=== PATIENT | female | born 1960 | race Caucasian/White ===

== ENCOUNTER 2022-04-20 11:16 | Inpatient (IN) | payer MEDICARE, MEDICAID, SELFPAY ==
--- NOTE | ~2022-04-20 | CT_ITS ---
EXAMINATION: CT HEAD WITHOUT CONTRAST CLINICAL INFORMATION: Confusion COMPARISON: None TECHNIQUE: Contiguous axial imaging was performed from the skull base to vertex without intravenous administration of contrast. This CT examination was performed using dose optimization techniques as appropriate, variously including the following: *Automated exposure control *Adjustment of mA and/or kV according to patient size (this includes techniques or standardized protocols for targeted exams where dose is matched to indication/reason for exam; i.e. extremities or head) *Use of iterative reconstruction technique DLP: 638 mGy-cm FINDINGS: There is no acute intra-axial, extra-axial bleed, masses or midline shift. There is no acute infarction evolution. The lateral ventricles are symmetrical in size and configuration without enlargement. The reeves to white matter difference is maintained normal. There is no acute infarction evolution. There is no edema. The soft tissues are normal. Bone windows reveal no calvarial abnormality. There is no scalp soft tissue abnormality. There is mild mucoperiosteal thickening right sphenoid and bilateral maxillary sinuses. CT/CT head/brain wo IV con IMPRESSION: No acute intracranial process seen. Chronic right sphenoid and bilaterally maxillary sinus inflammatory changes.
--- NOTE | ~2022-04-20 | XR_ITS ---
EXAMINATION: XR CHEST CLINICAL INFORMATION: Weakness COMPARISON: None TECHNIQUE: Frontal view of the chest was obtained. FINDINGS: Lungs are well-inflated. There appears to be minimal linear opacity of atelectasis of the inferior lingula. No airspace disease, mass or pleural effusion. Cardiac silhouette has normal size and contour. Surgical clips of the right axillary region. Bones appear to be diffusely osteopenic and there is osteoarthritis of bilateral glenohumeral joints. XR/XR chest 1V IMPRESSION: No acute pulmonary disease.
--- NOTE | 2022-04-20 11:19 | ECG_ITS ---
Test Reason : weakness Blood Pressure : / mmHG Vent. Rate : 103 BPM Atrial Rate : 103 BPM P-R Int : 140 ms QRS Dur : 070 ms QT Int : 372 ms P-R-T Axes : 064 040 048 degrees QTc Int : 487 ms Sinus tachycardia Otherwise normal ECG No previous ECGs available Referred By: Brigette Winter Electronically Signed By:Armando Barajas
--- NOTE | 2022-04-20 11:19 | ED.AMS ---
HPI - Altered Mental Status General Chief Complaint: Altered Mental Status Stated Complaint: NON MED COMPLIANT, AMS SINCE T-1 PER FAMILY Time Seen by Provider: 04/20/22 11:17 Source: patient, family and EMS Mode of arrival: EMS Limitations: altered mental status History of Present Illness HPI narrative: 61-year-old female with a reported history of anxiety and depression presents the ER from home for evaluation of confusion, altered mental status, not taking her medications for the last 1 week. EMS reports that the patient lives with her daughter and son-in-law. They called 911 because she has not been eating or drinking much, not taking her anxiety and depression medications, not sleeping for the last for 5 days. Patient on arrival to the ER is oriented to self only she is confused and cannot answer simple questions. Patient is son-in-law arrived to the ER to to help provide history. He reports at baseline she is an active, alert oriented woman. She is a former nurse's aide, retired in 2014. She got COVID on April 10. He reports a slow decline in her health since then. He reports this last week she had a fall at home on Friday or Friday. She has had significant decline in her confusion and weakness since then. She is not sleeping at all, not eating. He denies any use of drugs or alcohol. MD complaint: altered mental status, confusion and weakness Onset (ago): day(s) (5) Timing confirmed by: family member Severity: severe Consistency of symptoms: getting Worse Associated symptoms: loss of appetite, malaise and weakness Related Data Allergies Allergy/AdvReac Type Severity Reaction Status Date / Time No Known Allergies Allergy Unverified 12/23/19 16:34 [No Known Allergies*] Review of Systems Review of Systems: Yes Unobtainable due to mental condition and Unobtainable due to mental status PMFSH Social History Social History Alcohol intake: unknown Advance Directives: No Physical Exam ED Vital Signs: Vital Signs - 24 hr 04/20/22 11:24 04/20/22 12:40 Temperature 99.6 F Pulse Rate 115 H 102 H Respiratory Rate 18 18 Blood Pressure 118/88 120/79 Pulse Oximetry 96 96 Oxygen Delivery Method Room Air Room Air BMI result Body Mass Index 26.6 Appearance: Alert. Oriented X1. No acute distress. Eyes: Pupils equal, round and reactive to light. ENT: Pharynx normal. Neck: Normal inspection. Neck supple. CVS: Normal heart rate and rhythm. Pulses normal. Respiratory: No respiratory distress. Breath sounds normal. Abdomen: Soft and nontender. +BS x4 Skin: Skin warm and dry. Normal skin color. Normal skin turgor. No rashes. Extremities: No lower extremity edema. Neuro: Oriented X 1. No motor deficit. No sensory deficit. Confused, not able to hold a conversation or answer questions appropriately. Can follow simple commands. Delayed responses. Course Course Course Narrative: 61-year-old female with history of anxiety and depression, recent diagnosis of COVID-19 on April 10 through presents to the ER for evaluation of altered mental status, decreased p.o. intake for the last several days, not sleeping She had a fall at home earlier this week, no sustained injuries per family. Decline in mentation and increased confusion since then. On arrival to the ER patient has low-grade fever 99.6. She is tachycardic to 115 with a normal blood pressure. Saturating well on room air. Physical exam is unremarkable, aside from marked confusion. She has no nuchal rigidity or evidence of photophobia. Doubt acute meningitis. Could be related to COVID encephalopathy, lack of sleep, other metabolic derangement. Will get CT of her head, metabolic workup. Anticipate admission Reevaluation(s) Reevaluation #1: remains very confused. labs with JACKSON, Utox + opiates. SOFTWARE ENGINEER reviewed she is on Morphine ER and klonopin. no benzos in her utox, ?withdrawal. will plan to admit for further workup and management. Medications Administered Discontinued Medications Generic Name Dose Route Start Last Admin Trade Name Julienq PRN Reason Stop Dose Admin Sodium Chloride 1,000 mls @ 999 mls/hr 04/20/22 12:15 04/20/22 13:51 Ns IVCONT 04/20/22 13:15 Infused .Q1H1M YVETTE Infusion Potassium Chloride 40 meq 04/20/22 12:51 04/20/22 12:59 Potassium Chloride Er 20 Meq Tab.Er.Prt PO 04/20/22 12:52 40 meq ONCE ONE Administration Medical Decision Making Medical Decision Making MDM Narrative: 61-year-old female presenting to the ER for evaluation of confusion, weakness, not sleeping or eating. Differential diagnosis is broad. Will get metabolic workup, CT head, U tox. Tachycardic on arrival, incontinent of loose stools. Differential Diagnosis Differential Diagnoses: The differential diagnosis associated with the presentation includes Dehydration, polypharmacy, withdrawal, acute metabolic encephalopathy, stroke, toxicity, sleep deprivation, failure to thrive, COVID encephalopathy, new less likely meningitis Admission/Observation Consideration of admission/observation: Escalation of care including admission/observation considered Will require admission Consult Healthcare Provider Management of the patient was discussed with: Hospitalist Lab Data MDM Lab Attestation statement: I reviewed the patient's lab results. JACKSON and dehydration, hypokalemia 04/20/22 11:42 04/20/22 12:27 Labs: Lab Results 04/20/22 04/20/22 04/20/22 Range/Units 11:42 11:42 11:42 WBC 7.5 (4.8-10.8) X10*3/uL RBC 3.81 L (4.20-5.50) X10*6/uL Hgb 12.9 (12.0-16.0) g/dl Hct 35.8 L (37.0-47.0) % MCV 94.0 (80.0-98.0) fL MCH 33.9 H (27.0-33.0) pg MCHC 36.0 H (31.0-35.0) g/dl RDW 13.3 (11.0-16.0) % Plt Count 373 (160-400) X10*3/uL MPV 9.7 (9.4-12.3) fL Immature Gran % (Auto) 0.3 (0.0-0.4) % Neut % (Auto) 82.3 H (45-73) % Lymph % (Auto) 7.7 L (20-40) % [place] % (Auto) 9.3 (2-11) % Eos % (Auto) 0.1 (0-4) % Baso % (Auto) 0.3 (0-2) % Lymph # (Auto) 0.6 L (1.2-4.9) X10*3/uL [place] # (Auto) 0.7 (0.1-1.2) X10*3/uL Eos # (Auto) 0.0 (0.0-0.4) X10*3/uL Baso # (Auto) 0.0 (0.0-0.2) X10*3/uL Abs Immat Gran (auto) 0.02 (0.00-0.03) X10*3/uL Absolute Neuts (auto) 6.2 (2.0-8.3) x10*3/uL Absolute Nucleated RBC 0.000 (0.0-0.012) X10*3/uL Nucleated RBC % (auto) 0.0 (0.0-0.2) /100WBC VBG pH (7.32-7.43) VBG pCO2 mmHg VBG pO2 mmHg VBG HCO3 (22-26) mmol/L VBG O2 Saturation % VBG Base Excess mmol/L Sodium (135-145) mmol/L Potassium (3.3-5.1) mmol/L Chloride (96-108) mmol/L Carbon Dioxide (22-29) mmol/L Anion Gap (12-20) BUN (9-16) mg/dL Creatinine (0.5-1.4) mg/dL Estim Creat Clear Calc Estimated GFR Random Glucose (60-115) mg/dL Lactic Acid 1.1 (0.5-2.0) mmol/L Calcium (8.4-10.2) mg/dL Magnesium (1.6-2.6) mg/dL Total Bilirubin (0.0-1.0) mg/dL Direct Bilirubin (0.0-0.5) mg/dL AST (5-31) U/L ALT (0-31) U/L Alkaline Phosphatase (39-117) U/L Ammonia (13-55) umol/L Total Creatine Kinase (26-140) U/L Troponin I High Sens (<3.5-17.0) ng/L Total Protein (6.5-8.0) g/dL Albumin (3.5-5.0) g/dL TSH (0.32-4.0) uIU/mL Urine Color Urine Appearance Urine pH (5.0-9.0) Ur Specific [place] (1.005-1.025) Urine Protein (Neg-Trace) mg/dL Urine Glucose (UA) (Negative) mg/dL Urine Ketones (Negative) mg/dL Urine Blood (Negative) Urine Nitrite (Negative) Ur Leukocyte Esterase (Negative) Urine RBC (0-2) /HPF Urine WBC (0-5) /HPF Ur Squamous Epith Cells (0-2) /HPF Other Crystals Urine Bacteria (None Seen) Hyaline Casts (0-2) /LPF Granular Casts Urine Opiates Screen (Not Detect) Urine Fentanyl Screen (Not Detect) Ur Barbiturates Screen (Not Detect) Ur Phencyclidine Scrn (Not Detect) Ur Amphetamines Screen (Not Detect) U Benzodiazepines Scrn (Not Detect) Urine Cocaine Screen (Not Detect) U Marijuana (THC) Screen (Not Detect) Ethyl Alcohol mg/dL COVID-19 (DIANE) Positive A (Negative) COVID-19 Clin Com See Note 04/20/22 04/20/22 04/20/22 Range/Units 11:42 11:42 11:42 WBC (4.8-10.8) X10*3/uL RBC (4.20-5.50) X10*6/uL Hgb (12.0-16.0) g/dl Hct (37.0-47.0) % MCV (80.0-98.0) fL MCH (27.0-33.0) pg MCHC (31.0-35.0) g/dl RDW (11.0-16.0) % Plt Count (160-400) X10*3/uL MPV (9.4-12.3) fL Immature Gran % (Auto) (0.0-0.4) % Neut % (Auto) (45-73) % Lymph % (Auto) (20-40) % [place] % (Auto) (2-11) % Eos % (Auto) (0-4) % Baso % (Auto) (0-2) % Lymph # (Auto) (1.2-4.9) X10*3/uL [place] # (Auto) (0.1-1.2) X10*3/uL Eos # (Auto) (0.0-0.4) X10*3/uL Baso # (Auto) (0.0-0.2) X10*3/uL Abs Immat Gran (auto) (0.00-0.03) X10*3/uL Absolute Neuts (auto) (2.0-8.3) x10*3/uL Absolute Nucleated RBC (0.0-0.012) X10*3/uL Nucleated RBC % (auto) (0.0-0.2) /100WBC VBG pH (7.32-7.43) VBG pCO2 mmHg VBG pO2 mmHg VBG HCO3 (22-26) mmol/L VBG O2 Saturation % VBG Base Excess mmol/L Sodium (135-145) mmol/L Potassium (3.3-5.1) mmol/L Chloride (96-108) mmol/L Carbon Dioxide (22-29) mmol/L Anion Gap (12-20) BUN (9-16) mg/dL Creatinine (0.5-1.4) mg/dL Estim Creat Clear Calc Estimated GFR Random Glucose (60-115) mg/dL Lactic Acid (0.5-2.0) mmol/L Calcium (8.4-10.2) mg/dL Magnesium (1.6-2.6) mg/dL Total Bilirubin (0.0-1.0) mg/dL Direct Bilirubin (0.0-0.5) mg/dL AST (5-31) U/L ALT (0-31) U/L Alkaline Phosphatase (39-117) U/L Ammonia 32 (13-55) umol/L Total Creatine Kinase (26-140) U/L Troponin I High Sens 17.4 H (<3.5-17.0) ng/L Total Protein (6.5-8.0) g/dL Albumin (3.5-5.0) g/dL TSH 2.54 (0.32-4.0) uIU/mL Urine Color Urine Appearance Urine pH (5.0-9.0) Ur Specific [place] (1.005-1.025) Urine Protein (Neg-Trace) mg/dL Urine Glucose (UA) (Negative) mg/dL Urine Ketones (Negative) mg/dL Urine Blood (Negative) Urine Nitrite (Negative) Ur Leukocyte Esterase (Negative) Urine RBC (0-2) /HPF Urine WBC (0-5) /HPF Ur Squamous Epith Cells (0-2) /HPF Other Crystals Urine Bacteria (None Seen) Hyaline Casts (0-2) /LPF Granular Casts Urine Opiates Screen (Not Detect) Urine Fentanyl Screen (Not Detect) Ur Barbiturates Screen (Not Detect) Ur Phencyclidine Scrn (Not Detect) Ur Amphetamines Screen (Not Detect) U Benzodiazepines Scrn (Not Detect) Urine Cocaine Screen (Not Detect) U Marijuana (THC) Screen (Not Detect) Ethyl Alcohol < 10 mg/dL COVID-19 (DIANE) (Negative) COVID-19 Clin Com 04/20/22 04/20/22 04/20/22 Range/Units 11:48 12:27 12:55 WBC (4.8-10.8) X10*3/uL RBC (4.20-5.50) X10*6/uL Hgb (12.0-16.0) g/dl Hct (37.0-47.0) % MCV (80.0-98.0) fL MCH (27.0-33.0) pg MCHC (31.0-35.0) g/dl RDW (11.0-16.0) % Plt Count (160-400) X10*3/uL MPV (9.4-12.3) fL Immature Gran % (Auto) (0.0-0.4) % Neut % (Auto) (45-73) % Lymph % (Auto) (20-40) % [place] % (Auto) (2-11) % Eos % (Auto) (0-4) % Baso % (Auto) (0-2) % Lymph # (Auto) (1.2-4.9) X10*3/uL [place] # (Auto) (0.1-1.2) X10*3/uL Eos # (Auto) (0.0-0.4) X10*3/uL Baso # (Auto) (0.0-0.2) X10*3/uL Abs Immat Gran (auto) (0.00-0.03) X10*3/uL Absolute Neuts (auto) (2.0-8.3) x10*3/uL Absolute Nucleated RBC (0.0-0.012) X10*3/uL Nucleated RBC % (auto) (0.0-0.2) /100WBC VBG pH 7.58 H (7.32-7.43) VBG pCO2 30 mmHg VBG pO2 86 mmHg VBG HCO3 29 H (22-26) mmol/L VBG O2 Saturation 99.0 % VBG Base Excess 7.8 mmol/L Sodium 133 L (135-145) mmol/L Potassium 3.2 L (3.3-5.1) mmol/L Chloride 92 L (96-108) mmol/L Carbon Dioxide 26 (22-29) mmol/L Anion Gap 18 (12-20) BUN 50 H (9-16) mg/dL Creatinine 1.87 H (0.5-1.4) mg/dL Estim Creat Clear Calc 38.4 Estimated GFR 27 Random Glucose 116 H (60-115) mg/dL Lactic Acid (0.5-2.0) mmol/L Calcium 9.4 (8.4-10.2) mg/dL Magnesium 1.6 (1.6-2.6) mg/dL Total Bilirubin 0.6 (0.0-1.0) mg/dL Direct Bilirubin 0.2 (0.0-0.5) mg/dL AST 16 (5-31) U/L ALT 16 (0-31) U/L Alkaline Phosphatase 79 (39-117) U/L Ammonia (13-55) umol/L Total Creatine Kinase 87 (26-140) U/L Troponin I High Sens (<3.5-17.0) ng/L Total Protein 7.4 (6.5-8.0) g/dL Albumin 4.0 (3.5-5.0) g/dL TSH (0.32-4.0) uIU/mL Urine Color Dark Yellow Urine Appearance Cloudy Urine pH 5.0 (5.0-9.0) Ur Specific [place] 1.020 (1.005-1.025) Urine Protein 30 (1+) H (Neg-Trace) mg/dL Urine Glucose (UA) Negative (Negative) mg/dL Urine Ketones 15 (Negative) mg/dL Urine Blood Negative (Negative) Urine Nitrite Negative (Negative) Ur Leukocyte Esterase Negative (Negative) Urine RBC 0-2 (0-2) /HPF Urine WBC 0-5 (0-5) /HPF Ur Squamous Epith Cells 0-2 (0-2) /HPF Other Crystals Present Urine Bacteria None Seen (None Seen) Hyaline Casts 11-20 (0-2) /LPF Granular Casts Present Urine Opiates Screen (Not Detect) Urine Fentanyl Screen (Not Detect) Ur Barbiturates Screen (Not Detect) Ur Phencyclidine Scrn (Not Detect) Ur Amphetamines Screen (Not Detect) U Benzodiazepines Scrn (Not Detect) Urine Cocaine Screen (Not Detect) U Marijuana (THC) Screen (Not Detect) Ethyl Alcohol mg/dL COVID-19 (DIANE) (Negative) COVID-19 Clin Com 04/20/22 Range/Units 12:55 WBC (4.8-10.8) X10*3/uL RBC (4.20-5.50) X10*6/uL Hgb (12.0-16.0) g/dl Hct (37.0-47.0) % MCV (80.0-98.0) fL MCH (27.0-33.0) pg MCHC (31.0-35.0) g/dl RDW (11.0-16.0) % Plt Count (160-400) X10*3/uL MPV (9.4-12.3) fL Immature Gran % (Auto) (0.0-0.4) % Neut % (Auto) (45-73) % Lymph % (Auto) (20-40) % [place] % (Auto) (2-11) % Eos % (Auto) (0-4) % Baso % (Auto) (0-2) % Lymph # (Auto) (1.2-4.9) X10*3/uL [place] # (Auto) (0.1-1.2) X10*3/uL Eos # (Auto) (0.0-0.4) X10*3/uL Baso # (Auto) (0.0-0.2) X10*3/uL Abs Immat Gran (auto) (0.00-0.03) X10*3/uL Absolute Neuts (auto) (2.0-8.3) x10*3/uL Absolute Nucleated RBC (0.0-0.012) X10*3/uL Nucleated RBC % (auto) (0.0-0.2) /100WBC VBG pH (7.32-7.43) VBG pCO2 mmHg VBG pO2 mmHg VBG HCO3 (22-26) mmol/L VBG O2 Saturation % VBG Base Excess mmol/L Sodium (135-145) mmol/L Potassium (3.3-5.1) mmol/L Chloride (96-108) mmol/L Carbon Dioxide (22-29) mmol/L Anion Gap (12-20) BUN (9-16) mg/dL Creatinine (0.5-1.4) mg/dL Estim Creat Clear Calc Estimated GFR Random Glucose (60-115) mg/dL Lactic Acid (0.5-2.0) mmol/L Calcium (8.4-10.2) mg/dL Magnesium (1.6-2.6) mg/dL Total Bilirubin (0.0-1.0) mg/dL Direct Bilirubin (0.0-0.5) mg/dL AST (5-31) U/L ALT (0-31) U/L Alkaline Phosphatase (39-117) U/L Ammonia (13-55) umol/L Total Creatine Kinase (26-140) U/L Troponin I High Sens (<3.5-17.0) ng/L Total Protein (6.5-8.0) g/dL Albumin (3.5-5.0) g/dL TSH (0.32-4.0) uIU/mL Urine Color Urine Appearance Urine pH (5.0-9.0) Ur Specific [place] (1.005-1.025) Urine Protein (Neg-Trace) mg/dL Urine Glucose (UA) (Negative) mg/dL Urine Ketones (Negative) mg/dL Urine Blood (Negative) Urine Nitrite (Negative) Ur Leukocyte Esterase (Negative) Urine RBC (0-2) /HPF Urine WBC (0-5) /HPF Ur Squamous Epith Cells (0-2) /HPF Other Crystals Urine Bacteria (None Seen) Hyaline Casts (0-2) /LPF Granular Casts Urine Opiates Screen POSITIVE H (Not Detect) Urine Fentanyl Screen Not Detected (Not Detect) Ur Barbiturates Screen Not Detected (Not Detect) Ur Phencyclidine Scrn Not Detected (Not Detect) Ur Amphetamines Screen Not Detected (Not Detect) U Benzodiazepines Scrn Not Detected (Not Detect) Urine Cocaine Screen Not Detected (Not Detect) U Marijuana (THC) Screen Not Detected (Not Detect) Ethyl Alcohol mg/dL COVID-19 (DIANE) (Negative) COVID-19 Clin Com Independent Interpretation I performed an independent interpretation of an: EKG Interpretation: EKG with sinus tachycardia, ventricular rate 103 beats per minute, normal DE interval, normal QTC, no ST segment elevations or depressions. Chest x-ray without focal infiltrate or effusion Radiology Impression Discussion of test interpretation with radiology: I have reviewed the radiologist's reading. Radiologist Impression: CT head:IMPRESSION: No acute intracranial process seen. ? Chronic right sphenoid and bilaterally maxillary sinus inflammatory changes. Chest x-ray:IMPRESSION: No acute pulmonary disease Independent Historian Clinical information obtained from an independent historian. History obtained from or confirmed by: EMS and Other (Son-in-law a) Tests considered The following testing was considered but not selected: CT abdomen considered given loose stools but she is nontender, no role for CT scan at this time Prescription Management I considered prescription management with: Antibiotic No bacterial infection identified, no need for antibiotics at this time Critical Care Time Critical Care Time Critical Care Time: Yes Total Critical Care Time: 39 Attestation: I have personally provided critical care time exclusive of time spent on separately billable procedures. Time includes review of lab data, radiology results, discussion with consultants, and monitoring for potential decompensation. Intervention performed as documented. Discharge Plan Discharge Clinical Impression: Acute metabolic encephalopathy, Alkalosis, metabolic, COVID-19, Diarrhea Patient Disposition: Admitted As Inpatient
[2022-04-20 11:24] VITALS: BP 110/80; BP 118/88; PULSE 115; PULSE 116; RESP 18; TEMP 37.6; O2SAT 96; BMI 26.6
[2022-04-20 11:50] LABS: MANUAL DIFF FLAG NO
[2022-04-20 11:54] LABS: Venous Blood Gas Refer to POC result
[2022-04-20 11:55] LABS: VBG Base Excess 7.8 mmol/L; VBG HCO3 29 mmol/L (22-26); VBG pCO2 30 mmHg; VBG pH 7.58 (7.32-7.43); VBG pO2 86 mmHg
--- NOTE | 2022-04-20 12:00 | PC.NURSE ---
pt alert but at times will answer question appropriately like know the year but not the month, knows that she is in the hospital and the name but unable to state who she is living with ot her daughters name, pt denies pain, pt does have a dry cough and was incontinent of stool/foul smelling yellow diarrhea, pt is sinus tach on the monitor
[2022-04-20 12:01] LABS: COVID-19 Test Positive (Negative); IDNOW Serial# BCCEAD1C
[2022-04-20 12:02] LABS: Ammonia 32 umol/L (13-55); Basophils Percent Auto 0.3 % (0-2); Eosinophils Percent Auto 0.1 % (0-4); Hematocrit 35.8 % (37.0-47.0); Hemoglobin 12.9 g/dl (12.0-16.0); Imm Gran Abs Auto 0.02 X10*3/uL (0.00-0.03); Imm Gran Pct Auto 0.3 % (0.0-0.4); Lymphocytes Absolute Auto 0.6 X10*3/uL (1.2-4.9); Lymphocytes Percent Auto 7.7 % (20-40); Mean Corpuscular Hemoglobin 33.9 pg (27.0-33.0); Mean Platelet Volume 9.7 fL (9.4-12.3); Monocytes Absolute Auto 0.7 X10*3/uL (0.1-1.2); Monocytes Percent Auto 9.3 % (2-11); Neutrophils Absolute Auto 6.2 x10*3/uL (2.0-8.3); Neutrophils Percent Auto 82.3 % (45-73); Platelet Count 373 X10*3/uL (160-400); Red Blood Count 3.81 X10*6/uL (4.20-5.50); Red Cell Distribution Width 13.3 % (11.0-16.0); White Blood Count 7.5 X10*3/uL (4.8-10.8)
[2022-04-20 12:06] LABS: Lactic Acid 1.1 mmol/L (0.5-2.0)
[2022-04-20 12:15] LABS: Troponin-I High Sensitivity 17.4 ng/L (<3.5-17.0)
[2022-04-20 12:31] LABS: Ethanol < 10 mg/dL; TSH reflex Free T4 2.54 uIU/mL (0.32-4.0)
[2022-04-20] MEDS: 0.9 % Sodium Chloride 1,000 ML 999 ML IVCONT (12:39)
[2022-04-20 12:40] VITALS: BP 120/79; PULSE 102; RESP 18; O2SAT 96
[2022-04-20 12:48] LABS: Alanine Aminotransferase 16 U/L (0-31); Alkaline Phosphatase 79 U/L (39-117); Anion Gap 18 (12-20); Aspartate Amino Transferase 16 U/L (5-31); Bilirubin Direct 0.2 mg/dL (0.0-0.5); Bilirubin Total 0.6 mg/dL (0.0-1.0); Blood Urea Nitrogen 50 mg/dL (9-16); Calcium 9.4 mg/dL (8.4-10.2); Carbon Dioxide 26 mmol/L (22-29); Chloride 92 mmol/L (96-108); Creatinine Clr Calc Pharmacy 38.4; Estimated Glomerular Filt Rate 27; Glucose Random 116 mg/dL (60-115); Magnesium 1.6 mg/dL (1.6-2.6); Potassium 3.2 mmol/L (3.3-5.1); Sodium 133 mmol/L (135-145); Total Protein 7.4 g/dL (6.5-8.0)
[2022-04-20] MEDS: Potassium Chloride ER 20 MEQ TAB.ER.PRT 40 MEQ PO (12:59)
[2022-04-20 13:13] LABS: Amphetamine Screen Urine Not Detected (Not Detect); Appearance Urine Cloudy; Barbiturates, Urine Not Detected (Not Detect); Benzodiazepines Screen Urine Not Detected (Not Detect); Cannabinoid Screen Urine Not Detected (Not Detect); Cocaine Screen Urine Not Detected (Not Detect); Color Urine Dark Yellow; Fentanyl, urine Not Detected (Not Detect); Glucose Urine UA Negative (Negative); Leukocyte Esterase Urine Negative (Negative); Nitrite Urine Negative (Negative); Opiate Screen Urine POSITIVE (Not Detect); Phencyclidine Screen Urine Not Detected (Not Detect); UMIC TRIGGER UACC YES; Urine Blood Negative (Negative); Urine Ketones 15 mg/dL (Negative); Urine Protein 30 (1+) mg/dL (Neg-Trace)
[2022-04-20 13:25] LABS: Bacteria Urine None Seen (None Seen); Granular Casts Urine Present; Other Crystals Urine Present; RBC Urine 0-2 /HPF (0-2); Squamous Epithelial Cell Urine 0-2 /HPF (0-2); WBC Urine 0-5 /HPF (0-5)
[2022-04-20 14:19] VITALS: BP 118/78; PULSE 106; RESP 18; TEMP 36.1; O2SAT 96
[2022-04-20 14:36] VITALS: BP 131/80; PULSE 105; RESP 18; TEMP 37.1; O2SAT 93
--- NOTE | 2022-04-20 15:24 | PC.NURSE ---
pt had liquid bowel movement on bedpan, attempted to send down stool for stool sample (lab called, not enough stool)
--- NOTE | 2022-04-20 15:24 | PHA.MEDREC ---
Pharmacy Consult ? Medication Reconciliation Pharmacy has completed the medication reconciliation. Spoke to patient's son-in-law Stephan which confirmed all medications. Patient reportedly hasn't taken medications in a week. Patient hasn't taken their Ibrance in a week as well, with Stephan and patient unsure of when it was last taken. Current venlafaxine er dose is 300mg daily.
--- NOTE | 2022-04-20 15:34 | PM.IMHP ---
History of Present Illness Date of Service: 04/20/22 Chief Complaint: Weakness, diarrhea, encephalopathy A 61 years old lady with PMH of HTN, anxiety, breast cancer, hypothyroidism among others who presents to the hospital with confusion, diarrhea and generalized weakness. The patient reports that she got COVID infection almost 10 days ago and since then she has been getting worsen daily basis. She was partially confused and not sure about information but she reports not eating well, not drinking much, feeling sick to her stomach and having multiple episodes of diarrhea for the last few days. Denies any fever, chills, chest pain, palpitation, coughing, abdominal pain or urinary symptoms. In the emergency she was found to be in acute kidney injury with associated hyponatremia and hypokalemia. CT head and chest x-ray were negative for any acute findings. Admitted for further evaluation and treatment. Review of Systems Review of Systems: No fever, chills but having generalized weakness No chest pain, palpitation No shortness of breath or coughing No abdominal pain, nausea or vomiting but having diarrhea No urinary symptoms No any rash or wounds PMFSH Medical History Asthma Hypertension Hypothyroidism Social History Alcohol intake: unknown Advance Directives: No Meds Allergies Allergy/AdvReac Type Severity Reaction Status Date / Time No Known Allergies Allergy Unverified 12/23/19 16:34 [No Known Allergies*] Active Medications: Current Medications Albuterol Sulfate (Albuterol Sulfate 90 Mcg 8 Gm Inhaler) 2 puff INHALE Q4H PRN PRN Reason: wheezing Bupropion HCl (Bupropion Hcl Xl 300 Mg Tab.Er.24h) 300 mg PO DAILY [facility] Clonazepam (Clonazepam 0.5 Mg Tablet) 0.25 mg PO DAILY PRN PRN Reason: Anxiety Docusate Sodium (Docusate Sodium 100 Mg Capsule) 100 mg PO BID PRN PRN Reason: constipation Letrozole (Letrozole 2.5 Mg Tablet) 2.5 mg PO DAILY [facility] Lisinopril (Lisinopril 40 Mg Tablet) 40 mg PO DAILY [facility]; Protocol Morphine Sulfate (Morphine Sulfate Er 15 Mg Tablet.Er) 15 mg PO Q12H [facility] Non-Formulary Medication (Levothyroxine) 1 tab PO DAILY@0600 [facility] Non-Formulary Medication (Palbociclib [Ibrance]) 0 cap .ROUTE .COMPLEX [facility] Pharmacy Consult (Consult Rx Perform Med Rec) 1 each MISCELLANE ONCE PRN PRN Reason: Consult order Senna (Sennosides 8.6 Mg Tablet) 17.2 mg PO BEDTIME PRN PRN Reason: constipation Venlafaxine HCl (Venlafaxine Hcl Er 150 Mg Cap.Er.24h) 300 mg PO DAILY [facility] Zolpidem Tartrate (Zolpidem Tartrate 5 Mg Tablet) 10 mg PO BEDTIME PRN PRN Reason: Insomnia Home Medications Medication Instructions Recorded Confirmed Last Taken Type albuterol sulfate 90 mcg/actuation 2 puff inhalation Q4H PRN wheezing 04/20/22 04/20/22 1 Week Ago History aerosol inhaler (ProAir HFA) ~04/13/22 bupropion HCl 300 mg 24 hr tablet, 1 tab PO DAILY 04/20/22 04/20/22 1 Week Ago History extended release ~04/13/22 clonazepam 0.5 mg tablet 0.5 tab PO DAILY PRN Anxiety 04/20/22 04/20/22 1 Week Ago History ~04/13/22 clonazepam 1 mg tablet 1 tab PO BID 04/20/22 04/20/22 1 Week Ago History ~04/13/22 docusate sodium 100 mg capsule 1 cap PO BID PRN constipation 04/20/22 04/20/22 1 Week Ago History ~04/13/22 letrozole 2.5 mg tablet 1 tab PO DAILY 04/20/22 04/20/22 1 Week Ago History ~04/13/22 levothyroxine 137 mcg tablet 1 tab PO DAILY@0600 04/20/22 04/20/22 1 Week Ago History ~04/13/22 lisinopril 40 mg tablet 1 tab PO DAILY 04/20/22 04/20/22 1 Week Ago History ~04/13/22 morphine 15 mg tablet,extended 1 tab PO Q12H 04/20/22 04/20/22 1 Week Ago History release ~04/13/22 oxycodone-acetaminophen 5 mg-325 1 tab PO QID PRN moderate pain 04/20/22 04/20/22 1 Week Ago History mg tablet ~04/13/22 palbociclib 125 mg capsule See Rx Instructions .Route .COMPLEX 04/20/22 04/20/22 Unknown History (Ibrance) sennosides 8.6 mg tablet (Senna 2 tab PO BEDTIME PRN constipation 04/20/22 04/20/22 1 Week Ago History Laxative) ~04/13/22 venlafaxine 150 mg 2 cap PO DAILY 04/20/22 04/20/22 1 Week Ago History capsule,extended release 24 hr ~04/13/22 zolpidem 10 mg tablet 1 tab PO BEDTIME PRN Insomnia 04/20/22 04/20/22 1 Week Ago History ~04/13/22 Physical Exam Vital Signs and Narrative: Vital Signs: Last Vital Signs Temp 98.8 F 04/20/22 14:36 Pulse 105 H 04/20/22 14:36 Resp 18 04/20/22 14:36 BP 131/80 04/20/22 14:36 Pulse Ox 93 04/20/22 14:36 O2 Del Method 04/20/22 14:36 BMI result Body Mass Index 26.6 Const: Other: Constitutional : Awake, interactive, not in distress Neck : Normal inspection, Supple Cardiovascular : RRR, no JVP, no lower extremity edema Respiratory : good bilateral air entry, no crackles, wheezes or rhonchi Gastrointestinal: soft, lax, Normal bowel sounds, Non tender Skin : Warm, Dry Neurological : Alert & oriented x2, confused about details, No focal deficit Results Labs 04/20/22 11:42 04/20/22 12:27 Labs: Laboratory Results - last 24 hr 04/20/22 04/20/22 04/20/22 11:42 11:42 11:42 MCV 94.0 MCH 33.9 H MCHC 36.0 H RDW 13.3 Plt Count 373 MPV 9.7 Immature Gran % (Auto) 0.3 Neut % (Auto) 82.3 H Lymph % (Auto) 7.7 L [place] % (Auto) 9.3 Eos % (Auto) 0.1 Baso % (Auto) 0.3 Lymph # (Auto) 0.6 L [place] # (Auto) 0.7 Eos # (Auto) 0.0 Baso # (Auto) 0.0 Abs Immat Gran (auto) 0.02 Absolute Neuts (auto) 6.2 Absolute Nucleated RBC 0.000 Nucleated RBC % (auto) 0.0 VBG pH VBG pCO2 VBG pO2 VBG HCO3 VBG O2 Saturation VBG Base Excess Anion Gap Estim Creat Clear Calc Estimated GFR Random Glucose Lactic Acid 1.1 Calcium Magnesium Total Bilirubin Direct Bilirubin AST ALT Alkaline Phosphatase Ammonia Total Creatine Kinase Troponin I High Sens Total Protein Albumin TSH Urine Color Urine Appearance Urine pH Ur Specific [place] Urine Protein Urine Glucose (UA) Urine Ketones Urine Blood Urine Nitrite Ur Leukocyte Esterase Urine RBC Urine WBC Ur Squamous Epith Cells Other Crystals Urine Bacteria Hyaline Casts Granular Casts Urine Opiates Screen Urine Fentanyl Screen Ur Barbiturates Screen Ur Phencyclidine Scrn Ur Amphetamines Screen U Benzodiazepines Scrn Urine Cocaine Screen U Marijuana (THC) Screen Ethyl Alcohol COVID-19 (DIANE) Positive A COVID-19 [facility] Com See Note 04/20/22 04/20/22 04/20/22 11:42 11:42 11:42 MCV MCH MCHC RDW Plt Count MPV Immature Gran % (Auto) Neut % (Auto) Lymph % (Auto) Worth % (Auto) Eos % (Auto) Baso % (Auto) Lymph # (Auto) Worth # (Auto) Eos # (Auto) Baso # (Auto) Abs Immat Gran (auto) Absolute Neuts (auto) Absolute Nucleated RBC Nucleated RBC % (auto) VBG pH VBG pCO2 VBG pO2 VBG HCO3 VBG O2 Saturation VBG Base Excess Anion Gap Estim Creat Clear Calc Estimated GFR Random Glucose Lactic Acid Calcium Magnesium Total Bilirubin Direct Bilirubin AST ALT Alkaline Phosphatase Ammonia 32 Total Creatine Kinase Troponin I High Sens 17.4 H Total Protein Albumin TSH 2.54 Urine Color Urine Appearance Urine pH Ur Specific [place] Urine Protein Urine Glucose (UA) Urine Ketones Urine Blood Urine Nitrite Ur Leukocyte Esterase Urine RBC Urine WBC Ur Squamous Epith Cells Other Crystals Urine Bacteria Hyaline Casts Granular Casts Urine Opiates Screen Urine Fentanyl Screen Ur Barbiturates Screen Ur Phencyclidine Scrn Ur Amphetamines Screen U Benzodiazepines Scrn Urine Cocaine Screen U Marijuana (THC) Screen Ethyl Alcohol < 10 COVID-19 (DIANE) COVID-19 [facility] 04/20/22 04/20/22 04/20/22 11:48 12:27 12:55 MCV MCH MCHC RDW Plt Count MPV Immature Gran % (Auto) Neut % (Auto) Lymph % (Auto) Worth % (Auto) Eos % (Auto) Baso % (Auto) Lymph # (Auto) Worth # (Auto) Eos # (Auto) Baso # (Auto) Abs Immat Gran (auto) Absolute Neuts (auto) Absolute Nucleated RBC Nucleated RBC % (auto) VBG pH 7.58 H VBG pCO2 30 VBG pO2 86 VBG HCO3 29 H VBG O2 Saturation 99.0 VBG Base Excess 7.8 Anion Gap 18 Estim Creat Clear Calc 38.4 Estimated GFR 27 Random Glucose 116 H Lactic Acid Calcium 9.4 Magnesium 1.6 Total Bilirubin 0.6 Direct Bilirubin 0.2 AST 16 ALT 16 Alkaline Phosphatase 79 Ammonia Total Creatine Kinase 87 Troponin I High Sens Total Protein 7.4 Albumin 4.0 TSH Urine Color Dark Yellow Urine Appearance Cloudy Urine pH 5.0 Ur Specific [place] 1.020 Urine Protein 30 (1+) H Urine Glucose (UA) Negative Urine Ketones 15 Urine Blood Negative Urine Nitrite Negative Ur Leukocyte Esterase Negative Urine RBC 0-2 Urine WBC 0-5 Ur Squamous Epith Cells 0-2 Other Crystals Present Urine Bacteria None Seen Hyaline Casts 11-20 Granular Casts Present Urine Opiates Screen Urine Fentanyl Screen Ur Barbiturates Screen Ur Phencyclidine Scrn Ur Amphetamines Screen U Benzodiazepines Scrn Urine Cocaine Screen U Marijuana (THC) Screen Ethyl Alcohol COVID-19 (DIANE) COVID-19 Clin Com 04/20/22 12:55 MCV MCH MCHC RDW Plt Count MPV Immature Gran % (Auto) Neut % (Auto) Lymph % (Auto) Worth % (Auto) Eos % (Auto) Baso % (Auto) Lymph # (Auto) Worth # (Auto) Eos # (Auto) Baso # (Auto) Abs Immat Gran (auto) Absolute Neuts (auto) Absolute Nucleated RBC Nucleated RBC % (auto) VBG pH VBG pCO2 VBG pO2 VBG HCO3 VBG O2 Saturation VBG Base Excess Anion Gap Estim Creat Clear Calc Estimated GFR Random Glucose Lactic Acid Calcium Magnesium Total Bilirubin Direct Bilirubin AST ALT Alkaline Phosphatase Ammonia Total Creatine Kinase Troponin I High Sens Total Protein Albumin TSH Urine Color Urine Appearance Urine pH Ur Specific [place] Urine Protein Urine Glucose (UA) Urine Ketones Urine Blood Urine Nitrite Ur Leukocyte Esterase Urine RBC Urine WBC Ur Squamous Epith Cells Other Crystals Urine Bacteria Hyaline Casts Granular Casts Urine Opiates Screen POSITIVE H Urine Fentanyl Screen Not Detected Ur Barbiturates Screen Not Detected Ur Phencyclidine Scrn Not Detected Ur Amphetamines Screen Not Detected U Benzodiazepines Scrn Not Detected Urine Cocaine Screen Not Detected U Marijuana (THC) Screen Not Detected Ethyl Alcohol COVID-19 (DIANE) COVID-19 Clin Com Imaging Radiologist's Impressions: Impressions Chest X-Ray 04/20/22 11:50 IMPRESSION: No acute pulmonary disease. Head CT 04/20/22 12:14 IMPRESSION: No acute intracranial process seen. Chronic right sphenoid and bilaterally maxillary sinus inflammatory changes. Assessment and Plan (1) Acute metabolic encephalopathy: Status: Acute (2) Diarrhea: Status: Acute (3) Acute kidney injury: Status: Acute (4) Physical deconditioning: Status: Acute (5) COVID-19: Status: Acute Plan A 61 years old lady with PMH of HTN, anxiety, breast cancer, hypothyroidism among others who presents to the hospital with confusion, diarrhea and generalized weakness. Toxic metabolic encephalopathy Multifactorial, COVID infection, dehydration, opioids and benzos Hold meds that might affect her mind Recurrent reorientation Treat dehydration Acute kidney injury Unclear baseline but as you med was normal Secondary to prerenal most likely, possible ATN To do ultrasound of no improvement by tomorrow Gentle hydration Monitor intake and output Diarrhea Could be secondary COVID, chemotherapy Rule out C diff If no C diff infection to use Imodium Physical deconditioning Likely from having the infection and dehydration To do PT evaluation History of breast cancer Continue home medications, to get more information from the family Hypertension Continue lisinopril DVT PPX Heparin I tried to call the family to discuss more details but no one picked up. Will try again tomorrow morning. The patient will need 2. Overnight hospital stay for treatment of AMS, acute kidney injury and diarrhea pending safe discharge plan Time Spent With Patient Time: Total time managing care of this patient today ____ minutes. Quality Stroke Does the patient have a stroke diagnosis?: No VTE Prior VTE?: No VTE Risk Level:: Medical - moderate - high VTE Device Contraindication: Treatment Not Indicated VTE Drug Contraindication: N/A - Med Ordered
[2022-04-20] MEDS: 0.9 % Sodium Chloride 1,000 ML 100 ML IVCONT (15:47)
[2022-04-20 16:00] VITALS: BP 146/73; PULSE 103; RESP 20; TEMP 36.7; O2SAT 98
[2022-04-20 16:13] LABS: CDiff Gene PCR NEGATIVE (Negative)
--- NOTE | 2022-04-20 16:28 | PC.NURSE ---
report given to michelle wayne
[2022-04-20] MEDS: Zolpidem Tartrate 5 MG TABLET 10 MG PO (18:34)
[2022-04-20 19:13] VITALS: BP 98/77; PULSE 86; RESP 20; TEMP 36.2; O2SAT 98
[2022-04-20] MEDS: Morphine Sulfate ER 15 MG TABLET.ER PO (20:14)
[2022-04-20] MEDS: Heparin Sodium,Porcine 5,000 UNIT/ML VIAL 5000 UNIT SUBCUT (20:20)
[2022-04-21] VITALS (7 sets, daily range): BP systolic 101–141; BP diastolic 62–89; PULSE 78–107; RESP 16–20; TEMP 36.2–36.7; O2SAT 92–99
[2022-04-21 06:28] LABS: Hematocrit 32.8 % (37.0-47.0); Hemoglobin 11.3 g/dl (12.0-16.0); Mean Corpuscular HGB Conc 34.5 g/dl (31.0-35.0); Mean Corpuscular Volume 95.9 fL (80.0-98.0); Mean Platelet Volume 9.9 fL (9.4-12.3); Platelet Count 314 X10*3/uL (160-400); Red Blood Count 3.42 X10*6/uL (4.20-5.50); Red Cell Distribution Width 13.4 % (11.0-16.0); White Blood Count 6.2 X10*3/uL (4.8-10.8)
[2022-04-21 06:50] LABS: Anion Gap 18 (12-20); Blood Urea Nitrogen 34 mg/dL (9-16); Calcium 8.9 mg/dL (8.4-10.2); Carbon Dioxide 24 mmol/L (22-29); Chloride 99 mmol/L (96-108); Creatinine Clr Calc Pharmacy 63.1; Estimated Glomerular Filt Rate 48; Glucose Random 96 mg/dL (60-115); Potassium 3.4 mmol/L (3.3-5.1); Sodium 138 mmol/L (135-145)
[2022-04-21] MEDS: buPROPion HCl XL 300 MG TAB.ER.24H PO (07:30)
[2022-04-21] MEDS: Letrozole 2.5 MG TABLET PO (07:30)
[2022-04-21] MEDS: lisinopriL 40 MG TABLET PO (07:30)
[2022-04-21] MEDS: Levothyroxine Sodium 112 MCG, Levothyroxine Sodium 25 MCG 137 MCG PO (07:30)
[2022-04-21] MEDS: Venlafaxine HCl ER 150 MG CAP.ER.24H 300 MG PO (07:31)
[2022-04-21] MEDS: Heparin Sodium,Porcine 5,000 UNIT/ML VIAL 5000 UNIT SUBCUT ×2 (07:31→20:55)
[2022-04-21] MEDS: Morphine Sulfate ER 15 MG TABLET.ER PO (10:11)
--- NOTE | 2022-04-21 13:02 | HO.PM.IMPN ---
Subjective Subjective Date of Service: 04/21/22 Interval History: More alert and interactive still not back to her baseline kidney function recovering Review of Systems No fever, chills but having generalized weakness No chest pain, palpitation No shortness of breath or coughing No abdominal pain, or diarrhea No urinary symptoms No any rash or wounds Physical Exam Vital Signs: Vital Signs: Last Vital Signs Temp 97.2 F 04/21/22 12:00 Pulse 78 04/21/22 12:00 Resp 16 04/21/22 12:00 BP 119/69 04/21/22 12:00 Pulse Ox 96 04/21/22 12:00 O2 Del Method 04/21/22 12:00 BMI result Body Mass Index 26.6 Const: Other: Constitutional : Awake, interactive, not in distress Neck : Normal inspection, Supple Cardiovascular : RRR, no JVP, no lower extremity edema Respiratory : good bilateral air entry, no crackles, wheezes or rhonchi Gastrointestinal: soft, lax, Normal bowel sounds, Non tender Skin : Warm, Dry Neurological : Alert & oriented x2, confused about details, No focal deficit Objective Data Active Medications Acetaminophen (Acetaminophen 325 Mg Tablet) 650 mg PO Q6H PRN PRN Reason: Pain, Mild (Pain Scale 1-3) Albuterol Sulfate (Albuterol Sulfate 90 Mcg 8 Gm Inhaler) 2 puff INHALE Q4H PRN PRN Reason: wheezing Bupropion HCl (Bupropion Hcl Xl 300 Mg Tab.Er.24h) 300 mg PO DAILY [facility] Last Admin: 04/21/22 07:30 Dose: 300 mg Documented By: NENITA Clonazepam (Clonazepam 0.5 Mg Tablet) 0.25 mg PO DAILY PRN PRN Reason: Anxiety Heparin Sodium (Porcine) (Heparin Sodium,Porcine 5,000 Unit/Ml Vial) 5,000 unit SUBCUT Q12H [facility] Last Admin: 04/21/22 07:31 Dose: 5,000 unit Documented By: NENITA Sodium Chloride (Ns) 1,000 mls @ 100 mls/hr IVCONT .Q10H [facility] Last Admin: 04/21/22 12:04 Dose: Not Given Documented By: NENITA Non-Admin Reason: IV Running Letrozole (Letrozole 2.5 Mg Tablet) 2.5 mg PO DAILY [facility] Last Admin: 04/21/22 07:30 Dose: 2.5 mg Documented By: NENITA Levothyroxine Sodium 112 mcg/ (Levothyroxine Sodium 25 mcg) 137 mcg PO DAILY@0600 [facility] Last Admin: 04/21/22 07:30 Dose: 137 mcg Documented By: NENITA Lisinopril (Lisinopril 40 Mg Tablet) 40 mg PO DAILY [facility]; Protocol Last Admin: 04/21/22 07:30 Dose: 40 mg Documented By: NENITA Loperamide HCl (Loperamide Hcl 2 Mg Capsule) 2 mg PO Q4H PRN PRN Reason: Diarrhea Morphine Sulfate (Morphine Sulfate Er 15 Mg Tablet.Er) 15 mg PO BID [facility] Last Admin: 04/21/22 10:11 Dose: 15 mg Documented By: NENITA Non-Formulary Medication (Palbociclib [Ibrance]) 1 cap PO DAILY [facility] Ondansetron HCl (Ondansetron Hcl 4 Mg/2 Ml Vial) 4 mg IVPUSH Q8H PRN PRN Reason: Nausea and Vomiting Pharmacy Consult (Consult Rx Perform Med Rec) 1 each MISCELLANE ONCE PRN PRN Reason: Consult order Senna (Sennosides 8.6 Mg Tablet) 17.2 mg PO BEDTIME PRN PRN Reason: constipation Venlafaxine HCl (Venlafaxine Hcl Er 150 Mg Cap.Er.24h) 300 mg PO DAILY [facility] Last Admin: 04/21/22 07:31 Dose: 300 mg Documented By: NENITA Zolpidem Tartrate (Zolpidem Tartrate 5 Mg Tablet) 10 mg PO BEDTIME PRN PRN Reason: Insomnia Last Admin: 04/20/22 18:34 Dose: 10 mg Documented By: NENITA Labs 04/21/22 05:36 04/21/22 05:36 Labs: Laboratory Results - last 24 hr 04/20/22 04/20/22 04/20/22 12:55 12:55 15:15 MCV MCH MCHC RDW Plt Count MPV Absolute Nucleated RBC Nucleated RBC % (auto) Anion Gap Estim Creat Clear Calc Estimated GFR Random Glucose Calcium Urine Color Dark Yellow Urine Appearance Cloudy Urine pH 5.0 Ur Specific [place] 1.020 Urine Protein 30 (1+) H Urine Glucose (UA) Negative Urine Ketones 15 Urine Blood Negative Urine Nitrite Negative Ur Leukocyte Esterase Negative Urine RBC 0-2 Urine WBC 0-5 Ur Squamous Epith Cells 0-2 Other Crystals Present Urine Bacteria None Seen Hyaline Casts 11-20 Granular Casts Present Stl C. cayetanensis PCR Cancelled Stool Rotavirus A PCR Cancelled Stl Adenov F PCR Cancelled Stool Astrovirus (PCR) Cancelled Stool Campylobacter PCR Cancelled Stool Cryptosporidium PCR Cancelled Stl Sh Tox Pr E STEC PCR Cancelled Stool E coli O157 PCR Cancelled Stl Enterotoxigenic E PCR Cancelled Stool EPEC (PCR) Cancelled Stool EAEC (PCR) Cancelled Stl E. histolytica PCR Cancelled Stool Giardia Lamblia PCR Cancelled Stl P. shigelloides PCR Cancelled Stool Salmonella PCR Cancelled Stool Sapovirus (PCR) Cancelled Stl Shigella/EIEC PCR Cancelled St Y.enterocolitica PCR Cancelled Stool Vibrio (PCR) Cancelled Stl Vibrio cholerae PCR Cancelled Stl Norovirus GI/GII PCR Cancelled Urine Opiates Screen POSITIVE H Urine Fentanyl Screen Not Detected Ur Barbiturates Screen Not Detected Ur Phencyclidine Scrn Not Detected Ur Amphetamines Screen Not Detected U Benzodiazepines Scrn Not Detected Urine Cocaine Screen Not Detected U Marijuana (THC) Screen Not Detected C. difficile Tox B Gene 04/20/22 04/21/22 04/21/22 15:15 05:36 05:36 MCV 95.9 MCH 33.0 MCHC 34.5 RDW 13.4 Plt Count 314 MPV 9.9 Absolute Nucleated RBC 0.000 Nucleated RBC % (auto) 0.0 Anion Gap 18 Estim Creat Clear Calc 63.1 Estimated GFR 48 Random Glucose 96 Calcium 8.9 Urine Color Urine Appearance Urine pH Ur Specific [place] Urine Protein Urine Glucose (UA) Urine Ketones Urine Blood Urine Nitrite Ur Leukocyte Esterase Urine RBC Urine WBC Ur Squamous Epith Cells Other Crystals Urine Bacteria Hyaline Casts Granular Casts Stl C. cayetanensis PCR Stool Rotavirus A PCR Stl Adenov F PCR Stool Astrovirus (PCR) Stool Campylobacter PCR Stool Cryptosporidium PCR Stl Sh Tox Pr E STEC PCR Stool E coli O157 PCR Stl Enterotoxigenic E PCR Stool EPEC (PCR) Stool EAEC (PCR) Stl E. histolytica PCR Stool Giardia Lamblia PCR Stl P. shigelloides PCR Stool Salmonella PCR Stool Sapovirus (PCR) Stl Shigella/EIEC PCR St Y.enterocolitica PCR Stool Vibrio (PCR) Stl Vibrio cholerae PCR Stl Norovirus GI/GII PCR Urine Opiates Screen Urine Fentanyl Screen Ur Barbiturates Screen Ur Phencyclidine Scrn Ur Amphetamines Screen U Benzodiazepines Scrn Urine Cocaine Screen U Marijuana (THC) Screen C. difficile Tox B Gene NEGATIVE Assessment and Plan (1) Physical deconditioning: Status: Acute (2) Acute kidney injury: Status: Acute (3) Acute metabolic encephalopathy: Status: Acute (4) COVID-19: Status: Acute Plan A 61 years old lady with PMH of HTN, anxiety, breast cancer, hypothyroidism among others who presents to the hospital with confusion, diarrhea and generalized weakness. Toxic metabolic encephalopathy Multifactorial, COVID infection, dehydration, opioids and benzos improving Hold meds that might affect her mind Recurrent reorientation Acute kidney injury Secondary to prerenal most likely Improving Gentle hydration Monitor intake and output Diarrhea Could be secondary COVID, chemotherapy Rule out C diff If no C diff infection to use Imodium Physical deconditioning Likely from having the infection and dehydration To do PT evaluation History of breast cancer Continue home medications, to get more information from the family Hypertension Continue lisinopril DVT PPX Heparin The patient will Overnight hospital stay for treatment of AMS and acute kidney injury pending safe discharge plan Time Spent With Patient Time: Total time managing care of this patient today ____ minutes. Quality Stroke Does the patient have a stroke diagnosis?: No VTE Prior VTE?: No VTE Risk Level:: Medical - moderate - high VTE Device Contraindication: Treatment Not Indicated VTE Drug Contraindication: N/A - Med Ordered
--- NOTE | 2022-04-21 14:44 | MHC.CM.PN ---
PT IN ISOLATION DUE TO COVID + STATUS CM CALLED PTS DAUGHTER, IVA [phone] WHO REPORTS THE PT LIVES WITH HER AND HER FAMILY SHE REPORTS THE PT IS INDEPENDENT AT BL, USES NO DME AND HAS NO SERVICES PT IS COVID VAX X 3 NO HCP ON FILE, IVA IS UNSURE IF SHE HAS ONE PCP: RAVINDER JUAREZ IMM DELIVERED, COPY WILL BE MAILED DCP TBD PENDING PT EVAL HOME VS STR TRANSPORT TBD BY DISPO FAMILY VS BLS
[2022-04-21] MEDS: clonazePAM 0.5 MG TABLET 0.25 MG PO (21:29)
[2022-04-22 03:18] VITALS: BP 121/71; PULSE 94; RESP 16; TEMP 36.1; O2SAT 96
[2022-04-22] MEDS: Levothyroxine Sodium 112 MCG, Levothyroxine Sodium 25 MCG 137 MCG PO (05:26)
[2022-04-22 06:50] LABS: Anion Gap 11 (12-20); Blood Urea Nitrogen 18 mg/dL (9-16); Calcium 8.9 mg/dL (8.4-10.2); Carbon Dioxide 27 mmol/L (22-29); Chloride 103 mmol/L (96-108); Creatinine Clr Calc Pharmacy 85.6; Estimated Glomerular Filt Rate > 60; Glucose Random 87 mg/dL (60-115); Potassium 3.7 mmol/L (3.3-5.1); Sodium 137 mmol/L (135-145)
[2022-04-22 08:00] VITALS: BP 140/89; PULSE 105; RESP 19; TEMP 35.8; O2SAT 99
[2022-04-22] MEDS: Letrozole 2.5 MG TABLET PO (08:11)
[2022-04-22] MEDS: buPROPion HCl XL 300 MG TAB.ER.24H PO (08:12)
[2022-04-22] MEDS: Venlafaxine HCl ER 150 MG CAP.ER.24H 300 MG PO (08:12)
[2022-04-22] MEDS: lisinopriL 40 MG TABLET PO (08:12)
[2022-04-22] MEDS: clonazePAM 0.5 MG TABLET 0.25 MG PO (08:17)
--- NOTE | 2022-04-22 10:18 | MHC.CM.PN ---
Per ROUNDS discussion, Patient has left AMA.
--- NOTE | 2022-04-22 10:30 | PC.NURSE ---
Pt A&O this am w/ family member at bedside. Pt demanded to be discharged this AM or she was leaving AMA. Pt educated and MD informed, per md pt will be discharged sometime befroe 11a. pt and caregiver informed, pt stated she wants to leave now. IV and tele removed. all belongings with pt. AMA form signed. md informed. pt given info on meds that were administered this AM
--- NOTE | 2022-04-22 14:48 | PM.EVENT ---
Event Note Date of Service: 04/22/22 Event Note: Discharge summary Discharge diagnosis Toxic metabolic encephalopathy Acute kidney injury Diarrhea Physical deconditioning The patient was admitted for treatment of COVID-19 infection complications including dehydration, acute kidney injury and encephalopathy. She was improving clinically when she decided to leave against medical advice. She did not wait for me to see her as she walked out. Time Spent With Patient Time: Total time managing care of this patient today ____ minutes.
== END 2022-04-22 10:29 | disposition left against medical advice (07) | DRG 682 ==
LOC: HO.ED 12:23 → HO.EDOVER 15:39 → HO.IMC 15:50
PROVIDERS: Physician Assistant; Admitting Provider Student in an Organized Health Care Education/Training Program; Emergency Provider Emergency Medicine; PCP Internal Medicine; Visit Provider Student in an Organized Health Care Education/Training Program
DX: N17.0 Acute kidney failure with tubular necrosis (principal); G92.8 Other toxic encephalopathy; U07.1 COVID-19; E87.3 Alkalosis; K52.1 Toxic gastroenteritis and colitis; C50.919 Malignant neoplasm of unspecified site of unspecified female breast; F41.9 Anxiety disorder, unspecified; F32.A Depression, unspecified; T45.1X5A Adverse effect of antineoplastic and immunosuppressive drugs, initial encounter; E03.9 Hypothyroidism, unspecified; Z91.14 Patient's other noncompliance with medication regimen; Z87.891 Personal history of nicotine dependence; Z79.890 Hormone replacement therapy; Z79.899 Other long term (current) drug therapy
CPT/HCPCS: 36415; 70450; 71045; 80048; 80076; 80307; 81001; 81003; 82077; 82140; 82550; 82803; 83605; 83735; 84443; 84484; 85025; 85027; 87040; 87493; 87635; 93005; 99285; J1643